=== PATIENT | female | born 1955 | race Two or more races ===

== ENCOUNTER 2024-11-26 11:46 | Inpatient (IN) | payer MEDICARE, OTHER ==
[2024-11-26] VITALS (7 sets, daily range): BP systolic 116–127; BP diastolic 61–65; TEMP 97.9–98; O2SAT 91–100
[~2024-11-26] VITALS: Ht 152.4 cm; Wt 45.4 kg
[~2024-11-26 11:46] MED LIST: ALBU1.257 NEB; FLUT1DIS28 IH; LOSA50TA3 PO; PROP20TA19 PO; TIOT18CA4 IH
[2024-11-26 12:45] LABS: PLATELET COUNT (AUTO) 194 K/uL (179-408); RED BLOOD CELL COUNT(AUTO) 3.85 MIL/uL (3.63-4.92); RED CELL DISTRIBUTION WIDTH 14.6 % (12.3-17.7); WHITE BLOOD COUNT (AUTO) 10.1 K/uL (3.8-11.8)
[2024-11-26 12:54] LABS: CREATININE 0.8 mg/dL (0.6-1.3); SODIUM SERUM 138.0 mmol/L (136-145); UREA NITROGEN, BLOOD 16.0 mg/dL (7-18)
[2024-11-26 12:59] LABS: ASPARTATE AMINOTRANSFERASE 14.0 U/L (15-37); TOTAL PROTEIN, SERUM 7.3 g/dL (6.4-8.2)
[2024-11-26] MEDS: ALBUTEROL SULFATE 2.5 MG/3 ML NEBU NEB ONE (12:59)
[2024-11-26] MEDS: IPRATROPIUM BROMIDE 0.5 MG/2.5 ML NEBU NEB ONE (12:59)
[2024-11-26] MEDS ORDERED: ALBUTEROL SULFATE 2.5 MG/3 ML NEBU ONE (13:00)
[2024-11-26] MEDS ORDERED: IPRATROPIUM BROMIDE 0.5 MG/2.5 ML NEBU ONE (13:00)
[2024-11-26] MEDS ORDERED: CEFTRIAXONE /D5W 50ML IVPB **ER PYXIS IV ONE (13:19)
[2024-11-26] MEDS ORDERED: AZITHROMYCIN 500MG/ D5W 250ML IVPB **ER PYXIS ONLY IV ONE (13:49)
[2024-11-26] MEDS ORDERED: CEFD300C3 PO (13:52)
[2024-11-26] MEDS ORDERED: AZIT250T13 PO (13:52)
[2024-11-26] MEDS ORDERED: ALBU18HF2 INH (13:52)
[2024-11-26] MEDS ORDERED: GUAI5SYR4 PO (13:52)
[2024-11-26] MEDS: AZITHROMYCIN IV 500 MG in IV DEXTROSE 5% 250 ML IV ONE (14:13)
[2024-11-26] MEDS ORDERED: TRELEGY (15:04)
[2024-11-26] MEDS ORDERED: DOXA2TAB2 MT (15:04)
[2024-11-26] MEDS ORDERED: AZIL1TAB3 MT (15:04)
[2024-11-26] MEDS ORDERED: MONT10TA22 PO (15:04)
[2024-11-26] MEDS ORDERED: ONDANSETRON 4 MG/2 ML VIAL IV PRN (15:30)
[2024-11-26] MEDS ORDERED: REMEDY ESSENTIAL ZINC PASTE 113 GM TP PRN (15:30)
[2024-11-26] MEDS ORDERED: ENOXAPARIN SODIUM 30 MG/0.3 ML DISP.SYRIN SQ SCH (15:30)
[2024-11-26] MEDS ORDERED: MAGNESIUM HYDROXIDE 30 ML LIQUID UDC PO PRN (15:30)
[2024-11-26] MEDS ORDERED: CHOLECALCIFEROL 1,000 UNIT TABLET ONE (15:48)
[2024-11-26] MEDS: CHOLECALCIFEROL 1,000 UNIT TABLET PO SCH (15:51)
[2024-11-26] MEDS ORDERED: [UNRECOGNIZED DRUG - OTHER] INH (17:00)
[2024-11-26] MEDS ORDERED: ALBUTEROL SULFATE 8 GM HFA.AER.AD INH SCH (19:00)
[2024-11-26] MEDS: ALBUTEROL SULFATE 2.5 MG/ 0.5 ML NEBU NEB SCH (19:48)
[2024-11-26] MEDS: IPRATROPIUM BROMIDE 0.5 MG/2.5 ML NEBU NEB SCH (19:48)
[2024-11-26] MEDS: ENOXAPARIN SODIUM 40 MG/0.4 ML DISP.SYRIN SQ SCH (21:01)
[2024-11-27] VITALS (12 sets, daily range): BP systolic 126–150; BP diastolic 64–74; TEMP 97.4–98.2; O2SAT 92–98
[2024-11-27 06:51] LABS: PLATELET COUNT (AUTO) 182 K/uL (179-408); RED BLOOD CELL COUNT(AUTO) 3.63 MIL/uL (3.63-4.92); RED CELL DISTRIBUTION WIDTH 14.3 % (12.3-17.7); WHITE BLOOD COUNT (AUTO) 11.3 K/uL (3.8-11.8)
[2024-11-27 06:57] LABS: CREATININE 0.9 mg/dL (0.6-1.3); SODIUM SERUM 136.0 mmol/L (136-145); UREA NITROGEN, BLOOD 23.0 mg/dL (7-18)
[2024-11-27] MEDS: POTASSIUM CHLORIDE 20 MEQ TAB.PRT.SR PO ONE (12:32)
[2024-11-27] MEDS: AZITHROMYCIN IV 500 MG in IV DEXTROSE 5% 250 ML IV SCH (15:02)
[2024-11-27] MEDS: MONTELUKAST SODIUM 10 MG TABLET PO SCH (17:59)
[2024-11-27] MEDS: DOXAZOSIN 2 MG TABLET PO SCH (21:02)
[2024-11-28] VITALS (12 sets, daily range): BP systolic 143–153; BP diastolic 49–89; TEMP 97.9–98.2; O2SAT 91–99
[2024-11-28] MEDS: ACETAMINOPHEN 325 MG TABLET PO PRN (00:33)
[2024-11-28 07:27] LABS: PLATELET COUNT (AUTO) 187 K/uL (179-408); RED BLOOD CELL COUNT(AUTO) 3.83 MIL/uL (3.63-4.92); RED CELL DISTRIBUTION WIDTH 14.6 % (12.3-17.7); WHITE BLOOD COUNT (AUTO) 15.3 K/uL (3.8-11.8)
[2024-11-28 07:51] LABS: CREATININE 1.0 mg/dL (0.6-1.3); SODIUM SERUM 139.0 mmol/L (136-145); UREA NITROGEN, BLOOD 32.0 mg/dL (7-18)
[2024-11-28] MEDS: FAMOTIDINE 20 MG TABLET PO SCH (09:04)
[2024-11-28] MEDS ORDERED: GUAIFENESIN/DEXTROMETHORPHAN 5 ML UDC PO PRN (11:30)
[2024-11-28] MEDS: BENZONATATE 100 MG CAPSULE PO SCH (14:14)
[2024-11-29] VITALS (10 sets, daily range): BP systolic 134–153; BP diastolic 65–82; TEMP 97.7–97.8; O2SAT 88–100
[2024-11-29 06:47] LABS: PLATELET COUNT (AUTO) 194 K/uL (179-408); RED BLOOD CELL COUNT(AUTO) 3.69 MIL/uL (3.63-4.92); RED CELL DISTRIBUTION WIDTH 14.5 % (12.3-17.7); WHITE BLOOD COUNT (AUTO) 15.2 K/uL (3.8-11.8)
[2024-11-29 07:07] LABS: IMMUNOGLOBULIN A, SERUM 522 mg/dL (87-352); IMMUNOGLOBULIN M, SERUM 125 mg/dL (26-217)
[2024-11-29 07:16] LABS: CREATININE 0.9 mg/dL (0.6-1.3); SODIUM SERUM 136.0 mmol/L (136-145); UREA NITROGEN, BLOOD 31.0 mg/dL (7-18)
[2024-11-29 11:10] LABS: *ANTI-SCLERODERMA-70 AB 0.2 AI (0.0-0.9); *RNP ANTIBODIES 2.3 AI (0.0-0.9); *SJOGREN'S ANTI-SS-A 1.6 AI (0.0-0.9); *SJOGREN'S ANTI-SS-B <0.2 AI (0.0-0.9); *SMITH ANTIBODIES 0.4 AI (0.0-0.9); ANTI-DNA(DS) AB, QN 6 IU/mL (0-9); ANTI-NUCLEAR AB DIRECT Positive (Negative)
[2024-11-29] MEDS ORDERED: AMOX-430 PO (13:05)
[2024-11-29] MEDS ORDERED: METH4TAB3 PO (13:05)
[2024-11-29 19:09] LABS: ADENOVIRUS Not Detected (Not Detected); CORONAVIRUS 229E Not Detected (Not Detected); CORONAVIRUS HKU1 Not Detected (Not Detected); CORONAVIRUS NL63 Not Detected (Not Detected); CORONAVIRUS OC43 Not Detected (Not Detected); NP BORDETELLA PERTUSIS Not Detected (Not Detected); NP CHLAMYDOPHILA PNEUMONIAE Not Detected (Not Detected); NP HUMAN METAPNEUMOVIRUS Not Detected (Not Detected); NP HUMAN RHINO/ENTERO VIRUS Not Detected (Not Detected); NP INFLUENZA A Not Detected (Not Detected); NP INFLUENZA A/H1 Not Detected (Not Detected); NP INFLUENZA A/H1-2009 Not Detected (Not Detected); NP INFLUENZA A/H3 Not Detected (Not Detected); NP INFLUENZA B Not Detected (Not Detected); NP MYCOPLASMA PNEUMONIAE Not Detected (Not Detected); NP PARAINFLUENZA 1 Not Detected (Not Detected); NP PARAINFLUENZA 2 Not Detected (Not Detected); NP PARAINFLUENZA 3 Not Detected (Not Detected); NP PARAINFLUENZA 4 Not Detected (Not Detected); NP RESPIRATORY SYNCYTIAL VIRUS Not Detected (Not Detected)
[2024-11-30 10:07] LABS: *ANCA ATYPICAL p-ANCA <1:20 titer (Neg:<1:20); *ANCA CYTOPLASMIC (C-ANCA) <1:20 titer (Neg:<1:20); *ANCA PERINUCLEAR (P-ANCA) <1:20 titer (Neg:<1:20)
[2024-11-30 14:07] LABS: IMMUNOGLOBULIN E, TOTAL 42 IU/mL (6-495)
[2024-12-01 19:06] LABS: *IGG SUBCLASS 1 729 mg/dL (248-810); *IGG SUBCLASS 2 659 mg/dL (130-555); *IGG SUBCLASS 3 178 mg/dL (15-102); *IGG SUBCLASS 4 22 mg/dL (2-96); *IMMUNOGLOBULIN G, SERUM 1667 mg/dL (586-1602)
== END 2024-11-29 15:00 | disposition home or self-care (01) | DRG 177 ==
LOC: ER 12:03 → MEDSURG3 16:20
DX: J15.69 Pneumonia due to other Gram-negative bacteria (principal); J96.01 Acute respiratory failure with hypoxia; J44.1 Chronic obstructive pulmonary disease with (acute) exacerbation; J44.0 Chronic obstructive pulmonary disease with (acute) lower respiratory infection; J47.0 Bronchiectasis with acute lower respiratory infection; E44.0 Moderate protein-calorie malnutrition; J47.1 Bronchiectasis with (acute) exacerbation; E88.09 Other disorders of plasma-protein metabolism, not elsewhere classified; Z85.3 Personal history of malignant neoplasm of breast; Z82.49 Family history of ischemic heart disease and other diseases of the circulatory system; Z98.890 Other specified postprocedural states; Z79.899 Other long term (current) drug therapy; R79.89 Other specified abnormal findings of blood chemistry; Z87.09 Personal history of other diseases of the respiratory system
CPT/HCPCS: 36415; 71045; 71250; 82784; 82785; 83520; 83735; 84100; 85025; 86038; 86225; 86235; 86256; 87070; 87077; 93307; 94640; 94760; A4606; A4663; G0378; J0456; J0696; J1650; J3590; J7050; J7512